=== PATIENT | female | born 1995 | race Two or more races ===

== ENCOUNTER 2018-12-23 20:42 | Emergency (ER) | payer OTHER ==
[~2018-12-23] VITALS: Ht 162.6 cm; Wt 59.0 kg
[2018-12-23] MEDS ORDERED: CYCLOBENZAPRINE 10 MG TABLET PO ONE (21:00)
[2018-12-23] MEDS ORDERED: KETOROLAC TROMETHAMINE INJ 30 MG/ML VIAL IM ONE (21:00)
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
[2018-12-23] MEDS ORDERED: KETOROLAC TROMETHAMINE INJ 30 MG/ML VIAL ONE (21:29)
[2018-12-23] MEDS ORDERED: CYCLOBENZAPRINE 10 MG TABLET ONE (21:29)
--- NOTE | 2018-12-23 21:48 | NUR ---
MEDICATED ORDERED BY ERMTena. PT CHRISTIANA WELL.
[2018-12-23] MEDS ORDERED: HYDROCODONE/APAP 10/325MG 1 EA TABLET ONE (22:25)
[2018-12-23] MEDS ORDERED: ONDANSETRON 4 MG TAB.RAPDIS ONE (22:25)
[2018-12-23] MEDS ORDERED: ONDANSETRON 4 MG TAB.RAPDIS PO ONE (22:30)
[2018-12-23] MEDS ORDERED: HYDROCODONE/APAP 10/325MG 1 EA TABLET PO ONE (22:30)
--- NOTE | 2018-12-23 23:04 | NUR ---
Patient discharged to home in stable condition. Written and verbal after care instructions given. Patient verbalizes understanding of instruction.
[2018-12-23 23:05] VITALS: BP 132/70
== END 2018-12-23 23:06 | disposition home or self-care (01) ==
LOC: ER 20:42
DX: S13.4XXA Sprain of ligaments of cervical spine, initial encounter (principal); V49.49XA Driver injured in collision with other motor vehicles in traffic accident, initial encounter; Y93.89 Activity, other specified; Y92.413 State road as the place of occurrence of the external cause; Y99.8 Other external cause status
CPT/HCPCS: 70450; 72125; 96372; 99284; J1885; Q0162